=== PATIENT | female | born 1960 | race Caucasian/White ===

== ENCOUNTER → 2021-02-24 10:49 | Outpatient (CLI) | payer OTHER, SELFPAY ==
[2021-02-24 12:08] LABS: COVID19 -Nasal RAPID Negative (Negative)
== END ==
PROVIDERS: Referring Provider Physician Assistant; Visit Provider Physician Assistant
DX: J02.9 Acute pharyngitis, unspecified (principal)
CPT/HCPCS: 87070; 87635

== ENCOUNTER 2023-10-28 07:59 | Day surgery (SDC) | payer OTHER, SELFPAY ==
[2023-10-28 08:28] VITALS: BP 136/69; PULSE 73; RESP 20; TEMP 36.4; O2SAT 100
[2023-10-28] MEDS: LACTATED RINGERS 1,000 ML 42 ML IV (08:30)
--- NOTE | 2023-10-28 08:50 | P.HP_ITS ---
History of Present Illness History of Present Illness Date Patient Seen: 10/28/23 Chief complaint: SDC Narrative: Screening colonoscopy. Last colonoscopy 11 years ago [facility] Medical History [place] Social History Smoking Status: Never smoker alcohol intake: current Meds Home Medications and Allergies Home Medications Medication Instructions Recorded Confirmed Type cholecalciferol (vitamin D3) PO 07/21/18 02/24/21 History lactobacillus combination no.8 PO 07/21/18 02/24/21 History [Adult Probiotic] omega-3 fatty acids [Fish Oil PO 07/21/18 02/24/21 History Concentrate] progesterone micronized 200 mg PO DAILY 07/21/18 10/28/23 History erythromycin 5 mg/gram (0.5 %) eye 1 cm EYE-RIGHT Q8H #1 g 09/25/20 02/24/21 Rx ointment thyroid (pork) 30 mg tablet ([employer] 30 mg PO DAILY 10/28/23 10/28/23 History Thyroid) Allergies Allergy/AdvReac Type Severity Reaction Status Date / Time No Known Drug Allergies Allergy Verified 02/24/21 10:38 Exam Vital Signs (past 8 hours): - 10/28/23 08:28 Temperature 97.5 F L Pulse Rate 73 Respiratory Rate 20 Blood Pressure 136/69 Pulse Oximetry 100 Oxygen Delivery Method Room Air Oxygen Delivery Method Room Air Narrative Exam Narrative: Oropharynx free of lesions Chest clear to auscultation percussion Cardiac exam reveals no S3 or murmur Assessment & Plan Assessment & Plan narrative: Screening colonoscopy due for colorectal cancer screening. Risks, benefits, alternatives have been explained. Time-Based Coding :: [TOTAL MINUTES] spent with patient and on the chart (including review of chart, obtaining history, exam, reviewing outside data, placing orders, documenting exam and treatment plan, and counseling patient) on [DATE].
--- NOTE | 2023-10-28 08:52 | P.OP.COLON_ITS ---
Operative Date/Time/Diagnoses Date of procedure: 10/28/23 Pre-op diagnosis: See indication and findings Procedure & Clinicians Study performed: Colonoscopy Indications: Screening Surgeon: Triston Vasquez Procedure Notes Procedure in detail: After informed consent was obtained the patient was placed in left lateral d ecubitus position. The video colonoscope was introduced the rectum slowly advanced cecum. Preparation was good. On slow withdrawal mucosa was carefully examined. The scope was removed. The patient tolerated procedure well. Blood loss none Complications none Sedation mac Findings 1. [id number] anal stenosis digitally dilated 2. Otherwise normal colonoscopy to cecum. Patient should have follow-up colonoscopy in 10 years
[2023-10-28 09:17] VITALS: BP 101/65; PULSE 76; RESP 14; TEMP 36.6; O2SAT 97
[2023-10-28 09:22] VITALS: BP 112/72; PULSE 74; RESP 12; TEMP 36.5; O2SAT 100
[2023-10-28 09:27] VITALS: BP 115/75; PULSE 83; RESP 16; TEMP 36.6; O2SAT 99
== END 2023-10-28 09:35 | disposition home or self-care (01) ==
PROVIDERS: Referring Provider Internal Medicine Gastroenterology; Visit Provider Internal Medicine Gastroenterology
PROC: 0DJD8ZZ Inspection of Lower Intestinal Tract, Via Natural or Artificial Opening Endoscopic (ICD-10-PCS; CPT 45378; principal; 2023-10-28 09:00)
DX: Z12.11 Encounter for screening for malignant neoplasm of colon (principal); K62.4 Stenosis of anus and rectum
CPT/HCPCS: 45378; J2704